=== PATIENT | female | born 1990 | race Caucasian/White ===

== ENCOUNTER 2018-04-03 07:34 | Emergency (ER) | payer OTHER ==
--- NOTE | 2018-04-03 08:26 | EDPHY ---
H & P Stated Complaint: palpitations Time Seen by Provider: 04/03/18 07:50 - Personal History LMP (Females 10-55): 1-7 Days Ago Current Tetanus/Diphtheria Vaccine: Yes Current Tetanus Diphtheria and Acellular Pertussis (TDAP): Yes - Medical/Surgical History Hx Asthma: No Hx Chronic Respiratory Disease: No Hx Diabetes: No Hx Cardiac Disease: No Hx Renal Disease: No Hx Cirrhosis: No Hx Alcoholism: No Hx HIV/AIDS: No Hx Splenectomy or Spleen Trauma: No Other PMH: denies - Social History Smoking Status: Never smoked Constitutional: Initial Vital Signs Temperature (C) 37 C 04/03/18 07:40 Heart Rate 78 04/03/18 07:40 Respiratory Rate 16 04/03/18 07:40 Blood Pressure 121/88 H 04/03/18 07:40 O2 Sat (%) 97 04/03/18 07:40 O2 Delivery Mode Room Air Allergies/Adverse Reactions: amoxicillin Allergy (Verified 04/03/18 07:38) Home Medications: Medication Instructions Recorded Diindolylmethane 04/03/18 Fish Oil 1,000 mg Softgel 04/03/18 Zoloft 25mg (*) 04/03/18 Medical Decision Making ED Course/Re-evaluation: CHIEF COMPLAINT: Palpitations HISTORY OF PRESENT ILLNESS: 27 y/o female presents with several day history of palpitations with associated upper extremity weakness and numbness. Yesterday, she was sitting and felt heart palpitations and some right arm weakness and paresthesias. She felt as if she could not move the arm. She endorses associated blurred vision. This morning , she woke with similar symptoms in left arm. She felt like her heart was "beating out of her chest" and endorses associated shortness of breath. She has history of panic attacks but has never had arm involvement. She reports she began taking a DIM supplement last week due to heavy menstruation. She also endorses increased stress and increased caffeine use due to finals at university. She is concerned due to family history of blood clots in her grandfather and congenital heart abnormalities in her half-sister. She denies any alcohol or illicit drug use. REVIEW OF SYSTEMS: A comprehensive 10 system review of systems is otherwise negative aside from elements mentioned in the history of present illness and medical decision making. PHYSICAL EXAM: HR, BP, O2 Sat, RR. Temp noted General Appearance: Alert, well hydrated, appropriate, and non-toxic appearing. Head: Atraumatic without scalp tenderness or obvious injury Eyes: Pupils equal, round, reactive to light and accommodation, EOMI, no trauma , no injection. Ears: Clear bilaterally, no perforation, normal landmarks Nose: Atraumatic, no rhinorrhea, clear. Throat: There is no erythema or exudates, no lesions, normal tonsils, mucus membranes moist. Neck: Supple, 2+ carotid upstroke, nontender, no lymphadenopathy. Respiratory: No retractions, no distress, no wheezes, and no accessory muscle use. Lungs are clear to auscultation bilaterally. Cardiovascular: Regular rate and rhythm. Systolic murmur noted. Good capillary refill all extremities. Gastrointestinal: Abdomen is soft, nontender, non-distended, no masses, no rebound, no guarding, no peritoneal signs. Musculoskeletal: Normal active ROM of all extremities, atraumatic. Neurological: Alert, appropriate, and interactive. The patient has normal DTRs and non-focal cranial nerves, motor, sensory, and cerebellar exam. Skin: No rashes, good turgor, no nodules on palpation. Past medical history: Takes Zoloft. Past surgical history: Noncontributory Family history: Noncontributory Social history: Friend at bedside. Student. Does not abuse tobacco, drugs, or alcohol. DIFFERENTIAL DIAGNOSIS: The differential diagnosis for the patient's chest pain included but was not limited to myocardial ischemia, pulmonary embolus, chest wall pain, pleural inflammation, and pulmonary infectious causes. MEDICAL DECISION MAKIN27 y/o female presents following several episodes of palpitations with associated upper extremity weakness and paresthesias. Systolic murmur on exam. Plan for EKG, labs including i-stat troponin and chemistries. The 12 lead EKG was interpreted by myself. See hard copy and/or "tracemaster" electronic copy for interpretation. Sinus rhythm, no evidence of ischemia. POC troponin negative. I-stat chemistries are unremarkable. Patient has never undergone echocardiogram for her murmur. Plan to perform this today. Echocardiogram shows mitral valve prolapse. This may be continuing to her her symptoms and she may also have increased sensitivity to caffeine. Discussed imaging results with the patient. She will follow up with cardiology. Plan to discharge home in good condition. She will also discontinue her DIM supplement to see if this helps to relieve symptoms. Follow up and return precautions discussed. She is comfortable with this plan. - Data Points Laboratory Results: 04/03/18 04/03/18 08:01 07:58 POC Hgb 15.3 gm/dL gm/dL (12.6-16.3) POC Hct 45 % % (38-47) POC Sodium 142 mEq/L mEq/L (135-145) POC Potassium 4.3 mEq/L mEq/L (3.3-5.0) POC Chloride 106 mEq/L mEq/L (97-110) POC BUN 7 mg/dL mg/dL (7-23) POC Creatinine 0.7 mg/dL mg/dL (0.6-1.0) POC Glucose 89 mg/dL mg/dL (70-100) POC Troponin I 0.00 ng/mL ng/mL (0.00-0.08) Point of Care Test Results: Chemistry 04/03/18 04/03/18 08:01 07:58 POC Sodium 142 mEq/L mEq/L (135-145) POC Potassium 4.3 mEq/L mEq/L (3.3-5.0) POC Chloride 106 mEq/L mEq/L (97-110) POC BUN 7 mg/dL mg/dL (7-23) POC Creatinine 0.7 mg/dL mg/dL (0.6-1.0) POC Glucose 89 mg/dL mg/dL (70-100) POC Troponin I 0.00 ng/mL ng/mL (0.00-0.08) ISTAT H&H 04/03/18 08:01 POC Hgb 15.3 gm/dL gm/dL (12.6-16.3) POC Hct 45 % % (38-47) Departure - Departure Disposition: Home, Routine, Self-Care Clinical Impression: Palpitations, Mitral valve prolapse Condition: Good Instructions: Mitral Valve Prolapse (ED), Heart Palpitations (ED), Stress (ED) Additional Instructions: Try discontinuing your DIM supplement to see if this relieves your symptoms. Follow up with cardiology for further evaluation of your mitral ramone prolapse. We have referred you to our aviation technician aircraft stoner hand. Return to the emergency department for fever, shortness of breath, chest pain, or other associated symptoms. Referrals: FALLON ELIAS MD [Primary Care Provider] - As per Instructions Juan Easley MD [Medical Doctor] - As per Instructions Report Scribed for: Dennis Mensah Report Scribed by: Vijaya Bettencourt Date of Report: 04/03/18 Time of Report: 08:28
--- NOTE | 2018-04-03 09:16 | CPEKG ---
Test Reason : OPEN Blood Pressure : / mmHG Vent. Rate : 086 BPM Atrial Rate : 085 BPM P-R Int : 171 ms QRS Dur : 068 ms QT Int : 351 ms P-R-T Axes : 069 055 023 degrees QTc Int : 420 ms Sinus rhythm Probable left atrial enlargement Low voltage, precordial leads Confirmed by Dennis Mensah ([id number]) on 04/03/2018 9:15:51 AM Referred By: Confirmed By:Dennis Mensah
[2018-04-03 09:58] VITALS: BP 107/76
--- NOTE | 2018-04-03 10:21 | ECHO ---
[email or web address] [address] Main: [phone] Fax: Transthoracic Echocardiogram Name: SOPHY PARSONS MR#: [id number] Study Date: 04/03/2018 Study Time: 09:01 AM Date of : 1990 Age: 27 year(s) Height: 172.7 cm (68 in.) Weight: 61.24 kg (135 lb.) BSA: 1.73 m2 Gender: Female Examination: Echo Indication: Murmur Image Quality: Adequate Contrast: Requested by: Dennis Mensah BP: 101 mmHg/71 mmHg Heart Rate: Rhythm: Indication: Murmur Procedure Staff Welder Experimental: Frances Dumont [facility] Reading Physician: Christ Palmer MD Requesting Provider: Conclusions: Normal study Measurements: Chambers Valvular Assessment AV/MV Valvular Assessment TV/PV Normal Normal Normal Name Value Range Name Value Range Name Value Range Ao Violet (MM): 2.5 cm (2.2 cm-3.7 AV Vmax: 1.06 m/s (1 m/s-1.7 TR Vmax: 1.93 mm/s ( - ) cm) m/s) TR PGmax: 15 mmHg ( - ) IVSd (2D): 0.8 cm (0.6 cm-1.1 AV maxP mmHg ( - ) syst. PAP: 20 mmHg ( - ) cm) LVOT Vmax: 0.80 m/s (0.7 m/s-1.1 PV Vmax: 0.80 m/s (0.6 m/s-0.9 LVDd (2D): 4.4 cm (3.9 cm-5.3 m/s) m/s) cm) RANDEE (Vmax): 2.6 cm2 ( - ) PV PGmax: 3 mmHg ( - ) LVDs (2D): 2.8 cm (2.1 cm-4 MV E Vmax: 0.61 m/s ( - ) cm) MV A Vmax: 0.48 m/s ( - ) LVPWd (2D): 1.0 cm ( - ) MV E/A: 1.27 ( - ) LVOTd 2.1 cm 2.1 cm mm LVEF (BP): 71 % (>=55 %) RVDd(2D): 2.8 cm (1.9 cm-3.8 cmmm) Continued Measurements: Chambers Valvular Assessment AV/MV Valvular Assessment TV/PV Name Value Name Value Name Value LADs Lon.3 cm MV DecTime: 173 m/s CVP (est.): 5 mmHg LA Area: 13.0 cm2 MV E' Septal: 0.11 m/s LA Volume: 37 ml MV E/E' Septal: 5.50 LA Volume Index: 21.4 ml/m2 MV E/E' Lateral: 5.30 TAPSE: 2.5 cm Patient: SOPHY PARSONS Study Date: 04/03/2018 Page 1 of 2 09:01 AM Additional Vessels Name Value Ao Ascendin.6 cm Findings: Left Ventricle: Normal size left ventricle. No LV hypertrophy. Normal global systolic LV function. EF is 71 %. No regional wall motion abnormality. Normal diastolic LV function. Right Ventricle: Normal size right ventricle. Normal RV function. Left Atrium: The left atrium is normal in size. Right Atrium: The right atrium is normal in size. Mitral Valve: The mitral valve leaflets appear redundant. There is mild bileaflet mitral valve prolapse.Mild mitral valve regurgitation is present. No mitral stenosis is present. Aortic Valve: The aortic valve is tri-leaflet and functions normally. There is no aortic valve regurgitation. No aortic valve stenosis is present. Tricuspid Valve: The tricuspid valve is normal in appearance and function. Trivial to mild tricuspid valve regurgitation. Right ventricular systolic pressure measures 20mmHg. The pulmonary artery pressure is normal. Pulmonic Valve: The pulmonic valve is normal in appearance and function. Mild pulmonic valve regurgitation is noted. Aorta: The aorta is normal. Normal size aortic root measuring 2.5 cm. Normal size ascending aorta measuring 2.6 cm. IVC: Normal size and course of the IVC. Pericardium: No pericardial effusion. (No Signature Object) Patient: SOPHY PARSONS Study Date: 04/03/2018 Page 2 of 2 09:01 AM [id number]
== END 2018-04-03 09:55 | disposition home or self-care (01) ==
DX: R00.2 Palpitations (principal); I34.1 Nonrheumatic mitral (valve) prolapse; F41.0 Panic disorder [episodic paroxysmal anxiety]; Z79.899 Other long term (current) drug therapy
CPT/HCPCS: 82435-PO; 82565-PO; 82947-PO; 84132-PO; 84295-PO; 84484-PO; 84520-PO; 85014-PO

== ENCOUNTER 2018-07-30 23:48 | Emergency (ER) | payer OTHER ==
--- NOTE | 2018-07-31 01:09 | EDPHY ---
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 Patient took Flossonic nighttime cough and cold medicine before going to bed about 930. Patient woke up at 11:30 a.m. With dyspnea and palpitations. This lasted for about 20 min and then resolved. She has a history of similar episodes in the past. No leg pain or swelling. No family history of sudden cardiac or arrhythmia. No recent immobility. No nausea or vomiting. Symptoms have completely resolved. She is complaining of a sore throat which she has had for several days and was planning to go to Urgent Care tomorrow for further evaluation. ROS: 10 systems were reviewed and were negative except those elements noted in the HPI. PMH: Denies Social History: No smoking, no alcohol, no recreational drug use Family History: non-contributory Physical Exam: Gen: Awake, Alert, No Distress HEENT: Nose: no rhinorrhea Eyes: PERRLA, EOMI Mouth: Moist mucosa oropharynx has mild generalized erythema without edema or exudate Neck: Supple, no JVD, mild cervical lymphadenopathy Chest: nontender, lungs clear to auscultation Heart: S1, S2 normal, no murmur Abd: Soft, non-tender, no guarding Back: no CVA tenderness, no midline tenderness Ext: no edema, non-tender Skin: no rash Neuro: CN II-XII intact, Sensation grossly intact, Strength 5/5 in bilateral upper and lower extremities - Personal History LMP (Females 10-55): 1-7 Days Ago Current Tetanus/Diphtheria Vaccine: Yes Current Tetanus Diphtheria and Acellular Pertussis (TDAP): Yes - Medical/Surgical History Hx Asthma: No Hx Chronic Respiratory Disease: No Hx Diabetes: No Hx Cardiac Disease: No Hx Renal Disease: No Hx Cirrhosis: No Hx Alcoholism: No Hx HIV/AIDS: No Hx Splenectomy or Spleen Trauma: No Other PMH: anxiety, depression - Social History Smoking Status: Never smoked Constitutional: Initial Vital Signs Temperature (C) 36.7 C 07/30/18 23:50 Heart Rate 108 H 07/30/18 23:50 Respiratory Rate 22 H 07/30/18 23:50 Blood Pressure 150/81 H 07/30/18 23:50 O2 Sat (%) 94 07/30/18 23:50 O2 Delivery Mode Room Air Allergies/Adverse Reactions: amoxicillin Allergy (Verified 07/30/18 23:49) Home Medications: Medication Instructions Recorded Fish Oil 1,000 mg Softgel 04/03/18 Zoloft 25mg (*) 04/03/18 Medical Decision Making - Diagnostics EKG Interpretation: ECG time 00:00 a.m., sinus rhythm with a rate of 77, normal axis, normal intervals, no acute ST or T-wave changes. Impression: Normal ECG. ED Course/Re-evaluation: 20-year-old with palpitations like his secondary to the cold medication that she took. ECG is normal. She has not have any risk factors for PE, DVT or sudden cardiac . Vital signs here are normal. She has been reassured. Will discharge with follow-up as an outpatient. Rapid strep screen is negative. - Data Points Laboratory Results: 07/31/18 07/31/18 Unknown 00:36 Group A Strep Screen NEGATIVE (NEGATIVE) Group A Strep DNA Pending Departure - Departure Disposition: Home, Routine, Self-Care Clinical Impression: Viral URI, Dyspnea Condition: Good Instructions: Upper Respiratory Infection (ED), Dyspnea (ED) Additional Instructions: Follow up with primary care physician 2-3 days for further evaluation. Return to the emergency department for increasing chest pain, palpitations, fainting, shortness of breath, or any other concerns. Referrals: FALLON ELIAS MD [Primary Care Provider] - As per Instructions
[2018-07-31 01:18] VITALS: BP 111/77
--- NOTE | 2018-08-01 04:00 | CPEKG ---
Test Reason : OPEN Blood Pressure : / mmHG Vent. Rate : 077 BPM Atrial Rate : 079 BPM P-R Int : 166 ms QRS Dur : 072 ms QT Int : 373 ms P-R-T Axes : 082 060 026 degrees QTc Int : 423 ms Sinus rhythm Probable left atrial enlargement Low voltage, precordial leads Confirmed by tSephen Das ([id number]) on 08/01/2018 3:59:53 AM Referred By: Stephen Das Confirmed By:Stephen Das
== END 2018-07-31 01:18 | disposition home or self-care (01) ==
DX: J06.9 Acute upper respiratory infection, unspecified (principal); R06.02 Shortness of breath; F32.9 Major depressive disorder, single episode, unspecified; F41.9 Anxiety disorder, unspecified